=== PATIENT | male | born 1985 | race African-American/Black ===

== ENCOUNTER 2018-04-10 19:33 | Emergency (ER) | payer SELFPAY ==
[~2018-04-10] VITALS: Ht 172.7 cm; Wt 102.2 kg
[2018-04-10 20:00] LABS: HEMATOCRIT 45.8 % (39.0-50.0); IMMATURE GRANULOCYTES 0.3 % (0.0-5.0); MEAN CELL VOLUME 82.8 fL CALC (80.0-100.0); MEAN CORPUSCULAR HGB 27.1 pG CALC (26.0-32.0); MEAN CORPUSCULAR HGB CONC 32.8 g/L CALC (32.0-36.0); NEUT# 4.3 thou/uL (1.82-7.42); RED BLOOD COUNT 5.53 mill/uL (4.70-6.10); RED CELL DISTRI WIDTH 12.3 % (11.5-15.5)
[2018-04-10] MEDS ORDERED: PREDNISONE10 MG PO (20:35)
[2018-04-10] MEDS ORDERED: VENTOLIN HFA IN (20:35)
[2018-04-10 21:23] VITALS: BP 140/82
== END 2018-04-10 20:50 | disposition home or self-care (01) | DRG 203 ==
LOC: ED 19:33
PROVIDERS: Family Medicine
DX: J45.901 Unspecified asthma with (acute) exacerbation (principal); F17.210 Nicotine dependence, cigarettes, uncomplicated; R06.02 Shortness of breath